=== PATIENT | female | born 1955 | race African-American/Black ===

== ENCOUNTER 2022-01-20 10:43 | Emergency (ER) | payer MEDICARE, MEDICAID ==
[~2022-01-20] VITALS: Ht 162.6 cm; Wt 78.0 kg
[~2022-01-20 10:43] MED LIST: AMOXICILLIN/CL875 MG PO; AMOXICILLIN500 MG PO; AUGMENTIN875TAB OR; MIRTAZAPINE30 M1 PO; PRILOSEC40 MG PO; RISPERDAL PO; RISPERDAL1 M1 PO; TOBRAMYCIN0.3 % OU
[2022-01-20 11:22] LABS: IMMATURE GRANULOCYTES 0.2 % (0.0-5.0); MEAN CORPUSCULAR HGB 27.6 pG CALC (26.0-32.0); MEAN CORPUSCULAR HGB CONC 31.4 g/dL CAL (32.0-36.0); NEUT# 2.53 thou/uL (2.00-7.15); RED BLOOD COUNT 4.96 mill/uL (4.20-5.60); RED CELL DISTRI WIDTH 14.2 % (11.5-15.5)
[2022-01-20 11:23] LABS: HEMATOCRIT 43.7 % (37.0-47.0); HEMOGLOBIN 13.7 g/dl (12.0-16.0); MEAN CELL VOLUME 88.1 fL CALC (80.0-100.0)
[2022-01-20 11:46] LABS: ALKALINE PHOSPHATASE 80 u/l (38-126); ANION GAP 13 (6-22 (CALC)); BILIRUBIN, TOTAL 0.4 mg/dL (0.0-1.4); BUN 15 mg/dL (8-23); BUN/CREATININE RATIO 16 (12-20 (CALC)); CARBON DIOXIDE 28 mmol/l (22-30); CHLORIDE 105 mmol/l (95-108); CREATININE 0.9 mg/dL (0.5-1.0); GFR > 60 ML/MIN (>=60 (CALC)); GFR FOR AFR.AMER. > 60 ML/MIN (>=60 (CALC)); POTASSIUM 4.1 mmol/l (3.5-5.1); SODIUM 142 mmol/l (137-146); TOTAL PROTEIN 8.4 g/dL (6.3-8.2)
[2022-01-20 11:53] LABS: ALBUMIN 4.1 g/dL (3.2-5.0); SGOT/AST 24 u/l (9-36)
[2022-01-20] MEDS ORDERED: MECLIZINE25 MG PO (12:21)
[2022-01-20 12:22] VITALS: BP 141/105
== END 2022-01-20 12:37 | disposition home or self-care (01) ==
LOC: ED 10:43
PROVIDERS: Family Medicine
DX: H81.10 Benign paroxysmal vertigo, unspecified ear (principal); K76.0 Fatty (change of) liver, not elsewhere classified

== ENCOUNTER 2022-10-07 19:46 | Emergency (ER) | payer OTHER, MEDICARE, MEDICAID ==
[~2022-10-07] VITALS: Ht 154.9 cm; Wt 79.0 kg
[2022-10-07] VITALS (8 sets, daily range): BP systolic 113–141; BP diastolic 66–101
[~2022-10-07 19:46] MED LIST changes: +MECLIZINE25 MG PO
[2022-10-07] MEDS ORDERED: ORPHENADRINE100 MG PO (23:00)
[2022-10-07] MEDS ORDERED: VOLTAREN75 MG PO (23:00)
== END 2022-10-07 23:30 | disposition home or self-care (01) | DRG 552 ==
LOC: ED 19:46
DX: S16.1XXA Strain of muscle, fascia and tendon at neck level, initial encounter (principal); V43.52XA Car driver injured in collision with other type car in traffic accident, initial encounter; S80.02XA Contusion of left knee, initial encounter; S80.01XA Contusion of right knee, initial encounter